=== PATIENT | female | born 1980 | race Caucasian/White ===

== ENCOUNTER 2017-02-11 20:02 | Emergency (ER) | payer MEDICAID ==
[~2017-02-11] VITALS: Ht 162.6 cm; Wt 87.1 kg
[2017-02-11 20:10] VITALS: BP 155/100
== END 2017-02-11 22:26 | disposition home or self-care (01) ==
LOC: ED 20:02
DX: H60.92 Unspecified otitis externa, left ear (principal); I10 Essential (primary) hypertension

== ENCOUNTER 2018-11-09 20:54 | Emergency (ER) | payer MEDICAID ==
[~2018-11-09] VITALS: Ht 160 cm; Wt 98.4 kg
[2018-11-09 21:05] VITALS: Ht 160 cm; Wt 98.4 kg
[2018-11-09 23:49] LABS: BASOPHIL % 0.2 % (0-2); PLATELET COUNT 192 x10^3mcL (130-400); RED CELL DISTRIBUTION WIDTH 13.2 % (11.5-14.5)
[2018-11-10 00:01] LABS: CHLORIDE SERUM 106 mmol/L (98-107); CREATININE SERUM 0.8 mg/dL (0.6-1.0); GFR1 > 60 mL/min; GLUCOSE SERUM 191 mg/dL (74-106); POTASSIUM SERUM 3.9 mmol/L (3.5-5.1); SODIUM SERUM 141 mmol/L (136-145)
[2018-11-10 00:05] LABS: ALBUMIN 3.8 g/dL (3.4-5.0); ALKALINE PHOSPHATASE 64 U/L (46-116); ALT/SGPT 185 U/L (14-59); AST/SGOT 66 U/L (15-37); BILIRUBIN TOTAL 0.6 mg/dL (0.20-1.00); LIPASE 84 IU/L (73-393); TOTAL PROTEIN, SERUM 7.4 g/dL (6.4-8.2)
[2018-11-10 00:06] LABS: AMYLASE 7 U/L (25-115)
[2018-11-10 02:13] VITALS: BP 114/69
== END 2018-11-10 02:13 | disposition home or self-care (01) ==
LOC: ED 20:54
PROVIDERS: Specialist
DX: N23 Unspecified renal colic (principal); I10 Essential (primary) hypertension; G43.911 Migraine, unspecified, intractable, with status migrainosus; Z98.890 Other specified postprocedural states
CPT/HCPCS: J1885; J2270; J2405; J3010; J7030

== ENCOUNTER 2019-07-01 11:18 | Emergency (ER) | payer SELFPAY ==
[~2019-07-01] VITALS: Ht 167.6 cm; Wt 94.8 kg
[2019-07-01 11:33] VITALS: BP 142/70; Ht 167.6 cm; Wt 94.8 kg
== END 2019-07-01 15:05 | disposition home or self-care (01) ==
LOC: ED 11:18
DX: T24.001A Burn of unspecified degree of unspecified site of right lower limb, except ankle and foot, initial encounter (principal); G43.909 Migraine, unspecified, not intractable, without status migrainosus; X08.8XXA Exposure to other specified smoke, fire and flames, initial encounter; Y93.89 Activity, other specified; Y92.89 Other specified places as the place of occurrence of the external cause; Y99.8 Other external cause status

== ENCOUNTER 2020-02-15 07:25 | Emergency (ER) | payer MEDICAID ==
[~2020-02-15] VITALS: Ht 160 cm; Wt 97.1 kg
[2020-02-15 07:34] VITALS: Ht 160 cm; Wt 97.1 kg
[2020-02-15 09:32] VITALS: BP 130/90
== END 2020-02-15 09:32 | disposition home or self-care (01) ==
LOC: ED 07:25
DX: M54.5 Low back pain (principal); N34.2 Other urethritis
CPT/HCPCS: 87491; 87591; J1885

== ENCOUNTER 2020-02-21 12:34 | Emergency (ER) | payer MEDICAID ==
[~2020-02-21] VITALS: Ht 160 cm; Wt 97.1 kg
[2020-02-21 12:49] VITALS: Ht 160 cm; Wt 97.1 kg
[2020-02-21 15:48] LABS: microscopic required? NO
[2020-02-21 15:52] LABS: UA SPECIFIC GRAVITY 1.025 (1.005-1.035); urine erythrocyte NEGATIVE (NEGATIVE)
[2020-02-21 15:57] LABS: BASOPHIL % 0.4 % (0-2); PLATELET COUNT 200 x10^3mcL (130-400); RED CELL DISTRIBUTION WIDTH 13.4 % (11.5-14.5)
[2020-02-21 16:14] LABS: CALCIUM 8.9 mg/dL (8.5-10.1); CARBON DIOXIDE 26.4 mmol/L (21-32); CHLORIDE SERUM 100 mmol/L (98-107); CREATININE SERUM 0.6 mg/dL (0.6-1.0); GFR1 > 60 mL/min; GLUCOSE SERUM 94 mg/dL (74-106); POTASSIUM SERUM 3.9 mmol/L (3.5-5.1); SODIUM SERUM 133 mmol/L (136-145)
[2020-02-21 16:18] LABS: ALBUMIN 3.8 g/dL (3.4-5.0); ALKALINE PHOSPHATASE 63 U/L (46-116); ALT/SGPT 187 U/L (14-59); AST/SGOT 68 U/L (15-37); BILIRUBIN TOTAL 0.3 mg/dL (0.20-1.00); CHOLESTEROL 196 mg/dL (<200); HDL CHOLESTEROL 49 mg/dL (40-60); LIPASE 76 IU/L (73-393); TOTAL PROTEIN, SERUM 7.7 g/dL (6.4-8.2); TRIGLYCERIDES 146 mg/dL (<150)
[2020-02-21 17:10] VITALS: BP 124/87
== END 2020-02-21 17:10 | disposition home or self-care (01) ==
LOC: ED 12:34
PROVIDERS: Specialist
DX: R35.8 Other polyuria (principal); R10.9 Unspecified abdominal pain; G43.909 Migraine, unspecified, not intractable, without status migrainosus; Z98.890 Other specified postprocedural states
CPT/HCPCS: J1885; J7030

== ENCOUNTER 2020-04-25 08:57 | Emergency (ER) | payer OTHER ==
[~2020-04-25] VITALS: Ht 160 cm; Wt 92.5 kg
[2020-04-25 10:08] LABS: BASOPHIL % 0.4 % (0.2-1.3); PLATELET COUNT 199 x10^3mcL (179-408); RED CELL DISTRIBUTION WIDTH 12.8 % (12.3-17.7)
[2020-04-25 11:02] LABS: CREATININE SERUM 0.7 mg/dL (0.6-1.0); GFR1 > 60 mL/min; GLUCOSE SERUM 141 mg/dL (74-106); SODIUM SERUM 141 mmol/L (136-145)
[2020-04-25 11:07] LABS: BILIRUBIN TOTAL 0.4 mg/dL (0.20-1.00)
[2020-04-25 11:10] LABS: ALBUMIN 3.9 g/dL (3.4-5.0); ALKALINE PHOSPHATASE 64 U/L (46-116); ALT/SGPT 121 U/L (14-59); AST/SGOT 40 U/L (15-37); CALCIUM 8.8 mg/dL (8.5-10.1); CARBON DIOXIDE 23.9 mmol/L (21-32); CHLORIDE SERUM 105 mmol/L (98-107); LIPASE 99 IU/L (73-393); TOTAL PROTEIN, SERUM 7.8 g/dL (6.4-8.2)
[2020-04-25 11:11] VITALS: BP 126/79; Ht 160 cm; Wt 92.5 kg
== END 2020-04-25 12:20 | disposition home or self-care (01) ==
LOC: ED 08:57
PROVIDERS: Emergency Medicine
DX: R10.11 Right upper quadrant pain (principal); G43.909 Migraine, unspecified, not intractable, without status migrainosus; Z98.890 Other specified postprocedural states

== ENCOUNTER 2020-06-25 08:00 | Emergency (ER) | payer OTHER ==
[~2020-06-25] VITALS: Ht 160 cm; Wt 92.1 kg
[2020-06-25 08:09] VITALS: Ht 160 cm; Wt 92.1 kg
[2020-06-25 09:16] LABS: BASOPHIL % 0.4 % (0.2-1.3); PLATELET COUNT 189 x10^3mcL (179-408); RED CELL DISTRIBUTION WIDTH 12.9 % (12.3-17.7)
[2020-06-25 09:40] VITALS: BP 128/78
== END 2020-06-25 09:40 | disposition home or self-care (01) ==
LOC: ED 08:00
PROVIDERS: Emergency Medicine
DX: N93.9 Abnormal uterine and vaginal bleeding, unspecified (principal)